=== PATIENT | female | born 1975 | race Caucasian/White ===

== ENCOUNTER 2024-01-01 09:23 | Outpatient (AMB) | payer OTHER, SELFPAY ==
[2024-01-01 09:37] VITALS: BP 122/80; PULSE 86; TEMP 36.8; O2SAT 98; BMI 34.3
--- NOTE | 2024-01-01 09:37 | MHC.OFFWIV ---
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 Pt had the Flu B last week, and was on Prednisone Taper. Pt reports completing Tx Course and now symptoms have returned. Denies fevers, chills, nausea or vomiting. PFSH Social History Patient Tobacco Use Status: Never used Tobacco Review of Systems Const All systems reviewed & are unremarkable except as noted in HPI and below Physical Exam Vital Signs: Last Vital Signs Temp 98.3 F 01/01/24 09:37 Pulse 86 01/01/24 09:37 BP 122/80 01/01/24 09:37 Pulse Ox 98 01/01/24 09:37 Oxygen Delivery Method Room Air 01/01/24 09:37 BMI result Body Mass Index 34.3 Const General: comfortable and no acute distress Orientation/consciousness: patient oriented x3 HEENT Head: Yes normocephalic Ears: external ears normal and TM abnormal with fluid behind the TM bilateral; not bulging, not erythematous, not perforated and not retracted General nose exam: No nasal discharge present and Abnormal mucous membranes and turbinates present boggy and erythematous Mouth: moist mucous membranes Throat: Yes posterior oropharynx normal Resp Effort & Inspection: normal respiratory effort, able to speak in complete sentences, no audible wheezes and no cough Auscultation: clear to auscultation bilaterally, no crackles, no rales, no rhonchi and no wheezes Neuro General: patient oriented x3, gait normal and moves all extremities Psych Speech and movement: Normal speech and movement present Assessment & Plan Assessment & Plan (1) Upper respiratory infection: Code(s): J06.9 - Acute upper respiratory infection, unspecified Qualifiers: URI type: acute nasopharyngitis (common cold) Qualified Code(s): J00 - Acute nasopharyngitis [common cold] Plan: - Lung CTA - Added Symbicort - Continue using Rescue inhaler PRN Medications: New budesonide-formoterol 80-4.5 mcg/actuation (Symbicort) 1 inh inhalation BID 10.2 grams 0RF SOB J00 - Acute nasopharyngitis [common cold] Coding Level of Care Code New Pt Level 3 (98073) Diagnoses Acute nasopharyngitis J00 URI type: acute nasopharyngitis (common cold) Time Spent (min) 15
== END 2024-01-01 10:27 | disposition home or self-care (01) ==
PROVIDERS: PCP Internal Medicine; Visit Provider Nurse Practitioner Family
DX: J00 Acute nasopharyngitis [common cold] (principal)
CPT/HCPCS: 99203

== ENCOUNTER 2024-05-02 15:24 | Emergency (ER) | payer OTHER, SELFPAY ==
--- NOTE | ~2024-05-02 | CT_ITS ---
EXAMINATION: CT ABDOMEN AND PELVIS WITHOUT CONTRAST CLINICAL INFORMATION: Abdomen pain. Symptoms on left COMPARISON: None available. TECHNIQUE: Multidetector volumetric imaging was performed from the superior aspect of the liver through the pubic symphysis. Sagittal and coronal reformatted images were obtained on the technologist's workstation. This CT examination was performed using dose optimization techniques as appropriate, variously including the following: *Automated exposure control *Adjustment of mA and/or kV according to patient size (this includes techniques or standardized protocols for targeted exams where dose is matched to indication/reason for exam; i.e. extremities or head) *Use of iterative reconstruction technique DLP: 836 mGy-cm FINDINGS: LUNG BASES: There may be a tiny hiatal hernia. No suspicious abnormality in the visualized lower chest LIVER, GALLBLADDER, AND BILIARY TREE: There is a round 2.5 cm low attenuating mass abutting the posterior aspect of hepatic segment 6. The attenuation values are greater than simple fluid. The liver contour is smooth. There is no opaque gallstone. There is no biliary dilation. PANCREAS: No suspicious abnormality. SPLEEN: No suspicious abnormality. ADRENAL GLANDS: Normal KIDNEYS AND URETERS: There is no dilation of the urinary collecting system on either side. There is no opaque urinary calculus. No suspicious mass BLADDER: No suspicious abnormality GASTROINTESTINAL TRACT: Anastomotic suture in the region of the sigmoid colon. Gas and fecal residue throughout the colon. There is a short segment of luminal narrowing with wall thickening and surrounding pericolonic fat stranding at the junction of descending colon with sigmoid. There is no drainable abscess. There are multiple fluid and gas-filled small bowel loops in the left midabdomen. The appendix is normal. ABDOMINAL WALL: There is a small fat-containing periumbilical hernia. LYMPH NODES: There are no measurably enlarged abdominal or pelvic lymph nodes. There is no significant free intraperitoneal fluid VASCULAR: There is no abdominal aortic aneurysm. PELVIC VISCERA: There is some low-attenuation in the posterior cervix but is nonspecific. There are some physiologic ovarian cysts. OSSEOUS STRUCTURES: No suspicious focal lesion. Marked narrowing at L5/S1 CT/CT abdomen pelvis wo IV con IMPRESSION: Short segment of sigmoid wall thickening and pericolonic fat stranding. There are diverticula present. Pattern is most consistent with acute diverticulitis without evidence of drainable abscess, pneumoperitoneum or intramural gas. Some small bowel dilation may be reactive ileus. Fleischner guidelines were followed.
[2024-05-02 15:26] VITALS: BP 165/86; PULSE 103; RESP 18; TEMP 36.9; O2SAT 98; BMI 34.2
--- NOTE | 2024-05-02 15:27 | ED.ABDPAIN ---
HPI - Abdominal Pain General Chief Complaint: Abdominal Pain Stated Complaint: left side abd pain to the back, hx diverticulitis Time Seen by Provider: 05/02/24 17:08 Source: patient Mode of arrival: ambulatory Limitations: no limitations History of Present Illness ED Provider: Dr. Jasmine Solares HPI narrative: Patient comes to the emergency room complaining of left abdominal pain, both upper and lower quadrant. Patient states it has been about a week. Patient has history of diverticulitis. Patient denies any blood in the stool, no nausea vomiting or diarrhea. Patient does have constipation. Related Data Home Medications ?Medication ?Instructions ?Recorded ?Confirmed albuterol sulfate 90 mcg/actuation inhalation 01/01/24 aerosol inhaler (Ventolin HFA) fluticasone propionate 110 inhalation 01/01/24 mcg/actuation HFA aerosol inhaler Previous Rx's ?Medication ?Instructions ?Recorded budesonide-formoterol HFA 80 1 inh inhalation BID SOB #10.2 01/01/24 mcg-4.5 mcg/actuation aerosol grams inhaler (Symbicort) amoxicillin 500 mg-potassium 1 tab PO TID 10 days #30 tabs 05/02/24 clavulanate 125 mg tablet (Augmentin) ondansetron HCl 4 mg tablet 4 mg PO Q6H PRN nausea and 05/02/24 vomiting #14 tabs polyethylene glycol 3350 17 gram 17 g PO BID PRN laxative effect 05/02/24 oral powder packet (Miralax) #30 ea tramadol 50 mg tablet 50 mg PO .B.i.d. PRN pain #7 tabs 05/02/24 Allergies Allergy/AdvReac Type Severity Reaction Status Date / Time azithromycin Allergy Mild Diarrhea Verified 05/02/24 15:29 Review of Systems Review of Systems Constitutional : No Weight loss, No Fever, No Chills, No Night Sweats, No Fatigue, No Malaise ENT/Mouth : No Hearing loss, No Ear Pain, No Nasal Congestion, No Sinus Pain, No Hoarseness, No sore throat, No Rhinorrhea, No Swallowing Difficulty Eyes: No Eye Pain, No Swelling, No Redness, No Foreign Body, No Discharge, No Vision Changes Cardiovascular : No Chest Pain, No SOB, No Dyspnea on Exertion, No Orthopnea, No Edema, No Palpitations Respiratory : No Cough, No Sputum, No Wheezing, No Smoke Exposure, No Dyspnea Gastrointestinal : Complaining of abdominal pain, no nausea vomiting, complaining of constipation Genitourinary : no irregular bleeding, No Dysuria, No Urinary Frequency, No Hematuria, No Urinary Incontinence, No Urgency, No Flank Pain, No Urinary Flow Changes, No Hesitancy Musculoskeletal : No joint pain, No Myalgias, No Joint Swelling Skin : No Skin Lesions, No rash Neuro : No Weakness, No Numbness, No Paresthesias, No Loss of Consciousness, No Dizziness, No Headache Psych : No Anxiety/Panic, No Depression, No SI/HI/AH/VH, No Social Issues, Heme/Lymph: No Bruising, No Bleeding,No Lymphadenopathy Endocrine : No Polyuria, No Polydipsia, No Temperature Intolerance [facility], [facility] Past Medical History Medical History (Updated 05/02/24 @ 18:13 by Jasmine Solares MD) Diverticulitis Social History Social History Patient Tobacco Use Status: Never used Tobacco Smoked in Last 30 Days: No Use of substances other than those prescribed or required for medical reasons: No Advance Directives: No Advance Directives Information Provided: No Do you have a plan to hurt others: No Plan Patient : No Physical Exam ED Vital Signs: Vital Signs - 24 hr 05/02/24 15:26 05/02/24 16:58 05/02/24 17:00 Temperature 98.5 F 98.2 F 98.7 F Pulse Rate 103 H 73 77 Respiratory Rate 18 16 16 Blood Pressure 165/86 H 154/87 H 154/87 H Pulse Oximetry 98 100 100 Oxygen Delivery Method Room Air Room Air Room Air BMI result Body Mass Index 34.2 Const Other: Appearance: Alert. Oriented X3. No acute distress. Eyes: Pupils equal, round and reactive to light. ENT: Pharynx normal. Neck: Normal inspection. Neck supple. No lymph nodes noted. No crepitus CVS: Normal heart rate and rhythm. Pulses normal. Normal S1 and S2 Respiratory: No respiratory distress. Breath sounds normal. No Wheezing. No rales Abdomen: Soft , pain to palpation in the right and lower quadrants Skin: Skin warm and dry. Normal skin color. Normal skin turgor. Extremities: No lower extremity edema. No Lacerations. No Rash Neuro: Oriented X 3. No motor deficit. No sensory deficit. Moving all extremities. No slurred speech. CN 2 through 12 grossly intact Psych: calm, cooperative, normal affect Course Course Course Narrative: This is a Rapid Medical Examination (RME) performed by Tita Polk PA-C in triage. Full HPI, ROS, assessment and treatment plan per primary provider in the Main ED. 49 yo female hx of diverticulitis here for eval of left sided abdominal pain x1 week. reports worsening pain. admits this feels like her typical diverticulitis flare. taking tyelnol at home for pain control with minimal improvement. endorses assoc nausea w/o vomiting and constipation. last BM today, passed a small amount of stool. passing flatus. denies fever/chills, flank pain, dysuria, hematuria. + obese abd, soft, mildly ttp of left upper and lower abd, no rebound or guarding. no CVAT. Plan: labs, UA, CT abd Medical Decision Making Medical Decision Making [facility] Narrative: My interpretation of labs: Hematology and chemistry not show any acute abnormality, UA negative for UTI -my interpretation of CT scan: No obvious bowel obstruction, possible diverticulitis -CT scan shows diverticulitis. -I offered admission to the patient, patient states that she feels well enough to go home. Patient states that in the past she has had good results with Augmentin. 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 05/02/24 15:44 05/02/24 15:44 Labs: Lab Results 05/02/24 Range/Units 15:44 WBC 9.7 (4.8-10.8) X10*3/uL RBC 4.14 L (4.20-5.50) X10*6/uL Hgb 12.9 (12.0-16.0) g/dl Hct 37.4 (37.0-47.0) % MCV 90.3 (80.0-98.0) fL MCH 31.2 (27.0-33.0) pg MCHC 34.5 (31.0-35.0) g/dl RDW 11.9 (11.0-16.0) % Plt Count 314 (160-400) X10*3/uL MPV 9.9 (9.4-12.3) fL Immature Gran % (Auto) 0.3 (0.0-0.4) % Neut % (Auto) 74.0 H (45-73) % Lymph % (Auto) 17.8 L (20-40) % [place] % (Auto) 7.1 (2-11) % Eos % (Auto) 0.5 (0-4) % Baso % (Auto) 0.3 (0-2) % Lymph # (Auto) 1.7 (1.2-4.9) X10*3/uL [place] # (Auto) 0.7 (0.1-1.2) X10*3/uL Eos # (Auto) 0.1 (0.0-0.4) X10*3/uL Baso # (Auto) 0.0 (0.0-0.2) X10*3/uL Abs Immat Gran (auto) 0.03 (0.00-0.03) X10*3/uL Absolute Neuts (auto) 7.2 (2.0-8.3) x10*3/uL Absolute Nucleated RBC 0.000 (0.0-0.012) X10*3/uL Nucleated RBC % (auto) 0.0 (0.0-0.2) /100WBC Sodium 138 (135-145) mmol/L Potassium 4.0 (3.3-5.1) mmol/L Chloride 105 (96-108) mmol/L Carbon Dioxide 24 (22-29) mmol/L Anion Gap 13 (12-20) BUN 8 L (9-16) mg/dL Creatinine 0.82 (0.5-1.4) mg/dL Estim Creat Clear Calc 101.5 Estimated GFR > 60 Random Glucose 109 (60-115) mg/dL Calcium 9.6 (8.4-10.2) mg/dL Magnesium 2.0 (1.6-2.6) mg/dL Total Bilirubin 0.4 (0.0-1.0) mg/dL AST 15 (5-31) U/L ALT 12 (0-31) U/L Alkaline Phosphatase 48 (39-117) U/L Total Protein 7.1 (6.5-8.0) g/dL Albumin 4.4 (3.5-5.0) g/dL Lipase 18 (8-78) U/L Urine Color Yellow Urine Appearance Clear Urine pH 6.5 (5.0-9.0) Ur Specific Tram >= 1.030 H (1.005-1.025) Urine Protein Negative (Neg-Trace) mg/dL Urine Glucose (UA) Negative (Negative) mg/dL Urine Ketones Negative (Negative) mg/dL Urine Blood Negative (Negative) Urine Nitrite Negative (Negative) Ur Leukocyte Esterase Negative (Negative) Urine Test NEGATIVE (NEGATIVE) Independent Interpretation I performed an independent interpretation of an: CT Scan Radiology Impression Discussion of test interpretation with radiology: I have reviewed the radiologist's reading. Radiologist Impression: FINDINGS: LUNG BASES: There may be a tiny hiatal hernia. No suspicious abnormality in the visualized lower chest LIVER, GALLBLADDER, AND BILIARY TREE: There is a round 2.5 cm low attenuating mass abutting the posterior aspect of hepatic segment 6. The attenuation values are greater than simple fluid. The liver contour is smooth. There is no opaque gallstone. There is no biliary dilation. PANCREAS: No suspicious abnormality. SPLEEN: No suspicious abnormality. ADRENAL GLANDS: Normal KIDNEYS AND URETERS: There is no dilation of the urinary collecting system on either side. There is no opaque urinary calculus. No suspicious mass BLADDER: No suspicious abnormality GASTROINTESTINAL TRACT: Anastomotic suture in the region of the sigmoid colon. Gas and fecal residue throughout the colon. There is a short segment of luminal narrowing with wall thickening and surrounding pericolonic fat stranding at the junction of descending colon with sigmoid. There is no drainable abscess. There are multiple fluid and gas-filled small bowel loops in the left midabdomen. The appendix is normal. ABDOMINAL WALL: There is a small fat-containing periumbilical hernia. LYMPH NODES: There are no measurably enlarged abdominal or pelvic lymph nodes. There is no significant free intraperitoneal fluid VASCULAR: There is no abdominal aortic aneurysm. PELVIC VISCERA: There is some low-attenuation in the posterior cervix but is nonspecific. There are some physiologic ovarian cysts. OSSEOUS STRUCTURES: No suspicious focal lesion. Marked narrowing at L5/S1 CT/CT abdomen pelvis wo IV con IMPRESSION: Short segment of sigmoid wall thickening and pericolonic fat stranding. There are diverticula present. Pattern is most consistent with acute diverticulitis without evidence of drainable abscess, pneumoperitoneum or intramural gas. Some small bowel dilation may be reactive ileus. Fleischner guidelines were followed. Critical Care Time Critical Care Time Critical Care Time: Yes Total Critical Care Time: 45 Attestation: I have personally provided critical care time. Time includes review of lab data, radiology results, discussion with consultants, and monitoring for potential decompensation. Intervention performed as documented. Discharge Plan Discharge Clinical Impression: Diverticulitis Patient Disposition: Home, Self-Care Instructions: Diverticulitis (ED), Diverticulitis Diet (ED) Additional Instructions: Please follow-up with your primary care physician tomorrow. If you have any worsening or new symptoms, please return to the emergency room or call 911 Prescriptions: New amoxicillin-pot clavulanate [Augmentin] 500-125 mg tablet 1 tab PO TID 10 Days Qty: 30 0RF ondansetron HCl 4 mg tablet 4 mg PO Q6H PRN (Reason: nausea and vomiting) Qty: 14 0RF tramadol 50 mg tablet 50 mg PO .B.i.d. PRN (Reason: pain) Qty: 7 0RF polyethylene glycol 3350 [Miralax] 17 gram powder in packet 17 g PO BID PRN (Reason: laxative effect) Qty: 30 0RF No Action fluticasone propionate 110 mcg/actuation HFA aerosol inhaler inhalation albuterol sulfate [Ventolin HFA] 90 mcg/actuation HFA aerosol inhaler inhalation budesonide-formoterol [Symbicort] 80-4.5 mcg/actuation HFA aerosol inhaler 1 inh inhalation BID Qty: 10.2 0RF Print Language: [place]
[2024-05-02 16:05] LABS: MANUAL DIFF FLAG NO
[2024-05-02 16:08] LABS: Basophils Percent Auto 0.3 % (0-2); Eosinophils Absolute Auto 0.1 X10*3/uL (0.0-0.4); Eosinophils Percent Auto 0.5 % (0-4); Hematocrit 37.4 % (37.0-47.0); Hemoglobin 12.9 g/dl (12.0-16.0); Imm Gran Abs Auto 0.03 X10*3/uL (0.00-0.03); Imm Gran Pct Auto 0.3 % (0.0-0.4); Lymphocytes Absolute Auto 1.7 X10*3/uL (1.2-4.9); Lymphocytes Percent Auto 17.8 % (20-40); Mean Corpuscular HGB Conc 34.5 g/dl (31.0-35.0); Mean Corpuscular Hemoglobin 31.2 pg (27.0-33.0); Mean Corpuscular Volume 90.3 fL (80.0-98.0); Mean Platelet Volume 9.9 fL (9.4-12.3); Monocytes Absolute Auto 0.7 X10*3/uL (0.1-1.2); Monocytes Percent Auto 7.1 % (2-11); Neutrophils Absolute Auto 7.2 x10*3/uL (2.0-8.3); Platelet Count 314 X10*3/uL (160-400); Red Blood Count 4.14 X10*6/uL (4.20-5.50); Red Cell Distribution Width 11.9 % (11.0-16.0); White Blood Count 9.7 X10*3/uL (4.8-10.8)
[2024-05-02 16:12] LABS: Appearance Urine Clear; Color Urine Yellow; Glucose Urine UA Negative (Negative); Leukocyte Esterase Urine Negative (Negative); Nitrite Urine Negative (Negative); PH 6.5 (5.0-9.0); Specific Gravity - Urine >= 1.030 (1.005-1.025); Urine Blood Negative (Negative); Urine Ketones Negative (Negative); Urine Protein Negative (Neg-Trace)
[2024-05-02 16:16] LABS: UPreg QC Valid YES; Urine Pregnancy NEGATIVE (NEGATIVE)
[2024-05-02 16:23] LABS: Alanine Aminotransferase 12 U/L (0-31); Albumin Level 4.4 g/dL (3.5-5.0); Alkaline Phosphatase 48 U/L (39-117); Anion Gap 13 (12-20); Aspartate Amino Transferase 15 U/L (5-31); Bilirubin Total 0.4 mg/dL (0.0-1.0); Blood Urea Nitrogen 8 mg/dL (9-16); Calcium 9.6 mg/dL (8.4-10.2); Carbon Dioxide 24 mmol/L (22-29); Chloride 105 mmol/L (96-108); Creatinine Clr Calc Pharmacy 101.5; Estimated Glomerular Filt Rate > 60; Glucose Random 109 mg/dL (60-115); Lipase 18 U/L (8-78); Sodium 138 mmol/L (135-145); Total Protein 7.1 g/dL (6.5-8.0)
[2024-05-02 16:58] VITALS: BP 154/87; PULSE 73; RESP 16; TEMP 36.8; O2SAT 100
--- NOTE | 2024-05-02 16:59 | MHC.EDTECH ---
this pct just assumed care of patient ,vitals taken ,.Call pedro within Pt reach .
[2024-05-02 17:00] VITALS: BP 154/87; PULSE 77; RESP 16; TEMP 37.1; O2SAT 100
[2024-05-02] MEDS: Ondansetron ODT 4 MG TAB.RAPDIS TRANSLINGU (18:22)
[2024-05-02] MEDS: Amoxicillin/Potassium Clav 875 MG TABLET PO (18:22)
[2024-05-02 18:25] VITALS: BP 185/86; PULSE 64; RESP 16; TEMP 37; O2SAT 100
== END 2024-05-02 18:28 | disposition home or self-care (01) ==
PROVIDERS: Physician Assistant Medical; Emergency Provider Emergency Medicine; PCP Internal Medicine
DX: K57.32 Diverticulitis of large intestine without perforation or abscess without bleeding (principal)
CPT/HCPCS: 36415; 74176; 80053; 81003; 81025; 83690; 83735; 85025; 99284